=== PATIENT | male | born 1990 | race African-American/Black ===

== ENCOUNTER 2019-06-12 06:32 | Inpatient (IN) ==
[2019-06-12 07:02] LABS: BASO# 0.02 X1000 (0.0-0.2); BASO% 0.1 % (0.0-0.8); EOS# 0.09 X1000 (0.0-0.7); EOS% 0.5 % (0.0-10.0); HEMATOCRIT 43.7 % (42.0-52.0); HEMOGLOBIN 14.2 g/dL (14.0-18.0); IMM GRAN# 0.03 X1000 (0.0-0.04); IMM GRAN% 0.2 % (0.0-0.5); LYMPH# 1.11 X1000 (1.2-3.4); LYMPH% 6.6 % (20.5-51.1); MCH 27.2 PG (27-31); MCHC 32.5 g/dL (33-37); MCV 83.6 FL (81-99); MONO% 7.7 % (1.7-9.3); MPV 9.3 FL (7.4-10.4); NEUT# 14.31 X1000 (1.4-6.5); NEUT% 84.9 % (42.2-75.2); PLT 324 X1000 (130-400); RBC 5.23 XMIL (4.7-6.1); WBC 16.86 X1000 (4.8-10.8)
--- NOTE | 2019-06-12 07:14 | PROVIDER DOCUMENTATION ---
HPI-Abdominal Pain/GI Problem - General Chief Complaint: Abdominal Pain Stated Complaint: ABD PAIN Time Seen by Provider: 06/12/19 06:59 Source: patient Unable to obtain history due to:: urgency Allergies/Adverse Reactions: Patient Allergies Allergy/AdvReac Type Severity Reaction Status Date / Time Penicillins AdvReac Mild VOMITING Verified 06/12/19 06:40 Home Medications: Home Medication List Medication Instructions Recorded Confirmed Last Taken Type NK [No Home Medications] 06/12/19 06/12/19 Unknown History - History of Present Illness-ABD Nature of Presenting Problems: Patient with 2-3 day history increasing LLQ abdominal pain, with decreased bowel movements, no bleeding. Abdominal Pain Onset Location: reports: LLQ Pain Radiation: reports: LLQ Trunk Front/Back: 1 - LLQ pain Quality of Pain: reports: burning, cramping Severity in ED: reports: moderate Onset/Duration: reports: 2 days ago Timing: reports: still present Activities at Onset: reports: none Associated Symptoms: reports: loss of appetite, muscle aches, nausea. denies: dizziness, fever/chills, vomiting Last BM: 2 days ago Dark Stools Present?: reports: none noticed Rectal Bleeding: reports: none Rectal Pain: reports: none Emesis Description: reports: none Bruising or Bleeding Gums?: No Similar Symptoms Previously?: No Recently seen or treated by another doctor?: No Review of Systems - Adult - REVIEW OF SYSTEMS - ADULT Constitutional: reports: no symptoms reported. denies: chills, fever Eyes: reports: no symptoms reported Ears, Nose, Mouth & Throat: reports: no symptoms reported Cardiovascular: reports: no symptoms reported Respiratory: reports: no symptoms reported Gastrointestinal: reports: abdominal pain, constipation, nausea, poor appetite. denies: rectal bleeding, vomiting Genitourinary: reports: urinary retention. denies: flank pain Musculoskeletal: reports: no symptoms reported Integumentary: reports: no symptoms reported Neurological: reports: no symptoms reported Psychiatric: reports: no symptoms reported Endocrine: reports: no symptoms reported Hematologic/Lymphatic: reports: no symptoms reported Allergic/Immunologic: reports: no symptoms reported All Other Systems: Reviewed and Negative Past History - Adult - PAST MEDICAL HISTORY-ADULT Review of Records: reports: Old Records Reviewed, Nursing Assessment Review, Medications Reviewed, Social history reviewed & non-contributory. Major Childhood Illnesses: reports: denies history Cardiovascular: reports: denies history Respiratory: reports: denies history Gastrointestinal: reports: denies history Genitourinary: reports: denies history Musculoskeletal: reports: denies history Neurological: reports: denies history Psychiatric: reports: denies history Endocrine/Immune: reports: denies history Other Conditions: reports: denies history - PRIOR SURGERIES/PROCEDURES Surgical/Procedure History: reports: reviewed, not pertinent, other (abscess to lower back) - PRIOR HOSPITALIZATIONS Prior Hospitalizations: reports: none - IMMUNIZATION STATUS Childhood Immunizations: See Nurse Assessment Flu Vaccine: See Nurse Assessment - FAMILY HISTORY Family History: reviewed, not pertinent - SOCIAL HISTORY Smoking: less than 1 pack/day Substance Use: none/never Alcohol Use Frequency: never Physical Exam-General - PHYSICAL EXAM-ADULT Initial Vital Signs Reviewed: Yes - CONSTITUTIONAL General Appearance: appears well, no apparent distress - EYES Eyes: PERRL/EOMI, pink conjunctivae - HEAD, EARS, NOSE, MOUTH & THROAT HENMT: normocephalic/atraumatic, moist mucous membranes - NECK Neck: non-tender, full range of motion - RESPIRATORY Respiratory: chest non-tender, lungs clear, normal breath sounds - CARDIOVASCULAR Cardiovascular: normal peripheral pulses, regular rate, rhythm, no edema - GASTROINTESTINAL (ABDOMEN) Abdominal Exam: normal bowel sounds, guarding (LLQ), rebound (LLQ), tenderness (LLQ). negative: mass - LYMPHATIC Lymphatic: no adenopathy - MUSCULOSKELETAL Back Exam: normal inspection Extremity: normal range of motion - SKIN Integumentary: normal color - NEUROLOGIC Neurologic: willow analyst II-XII nml as tested, grossly normal - PSYCHIATRIC Psych/Mental Status: normal mood/affect Progress - PLAN OF CARE/RESULTS Progress/Plan/Lab Results: Vital Signs - 8 hr 06/12/19 06:36 Temperature 97 F L Pulse Rate 103 H Respiratory Rate 16 Blood Pressure 138/96 O2 Sat by Pulse Oximetry 97 Laboratory Results - last 24 hr 06/12/19 06:51 WBC 16.86 H RBC 5.23 Hgb 14.2 Hct 43.7 MCV 83.6 MCH 27.2 MCHC 32.5 L RDW Std Deviation 13.0 Plt Count 324 MPV 9.3 Immature Gran % (Auto) 0.2 Neut % (Auto) 84.9 H Lymph % (Auto) 6.6 L [place] % (Auto) 7.7 Eos % (Auto) 0.5 Baso % (Auto) 0.1 Immature Gran # (Auto) 0.03 Neut # (Auto) 14.31 H Lymph # (Auto) 1.11 L [place] # (Auto) 1.30 H Eos # (Auto) 0.09 Baso # (Auto) 0.02 Orders Category Date Time Status NPO Diet 06/12/19 06:[address] ABD/PELVIS W/IV CONT ONLY [CT] Stat Exams 06/12/19 07:03 Ordered CBC WITH DIFF [HEME] Stat Lab 06/12/19 06:51 Completed COMPREHENSIVE METABOLIC PANEL [CHEM] Stat Lab 06/12/19 06:51 Received LIPASE [CHEM] Stat Lab 06/12/19 06:51 Received URINALYSIS [URINALYSIS] Stat Lab 06/12/19 06:40 Uncollected Result Diagrams: 06/12/19 06:51 06/12/19 06:51 - REASSESSMENT Reassessment #1 Status: unchanged (Patient with increasing LLQ abd pain, Spoke to Dr. Aguero [employer] Harrisonnneka hartmann, accepted pt in transfer.) - CT/MRI 1 CT Study: Abdomen Impression: Abnormal (EXAM: CT ABD/PELVIS W/IV CONT ONLY HISTORY: colitis TECHNIQUE: CT abdomen and pelvis with intravenous contrast, but without oral contrast COMPARISON: None. FINDINGS: The gallbladder is partly contracted. No calcified stones or adjacent inflammation. There is mild fatty infiltration of the liver and the liver is mildly prominent. No splenomegaly. No inflammation about the pancreas. Normal adrenal glands and kidneys. No hydronephrosis. Normal aorta. No bowel obstruction. There is free air in the mid pelvis. There is thickening to the wall of the sigmoid colon. Mild thickening to the adjacent small bowel loops. No well-defined abscess. The appendix is mildly distended, but there are no adjacent periappendiceal inflammatory changes. The urinary bladder is only mildly distended. Normal prostate. IMPRESSION: Sigmoid colitis or diverticulitis with focal perforation and adjacent enteritis, but no well-defined abscess. This report was discussed with Dr Garcia in the [place] emergency room on 06/12/2019 at 8:00 AM and was readback. This exam was performed using automated exposure control, adjustment of mA or kV according to patient size, and/or use of iterative reconstruction technique. Electronically signed by Perez Quarles 06/12/2019 8:05 AM 06/12/19 0805 Interpreting Physician: Perez Quarles MD Dictated Date/Time: 06/12/19 0759 cc: Marisel Garcia MD; None,PCP) - CONSULTS/PCP/HOSPITALIST Notification Time Discussed: 08:21 Consult Disposition: Admit [facility], case discussed, accepted patient , transfer to [facility]) Departure - Departure Date of Disposition Decision: 06/12/19 Time of Disposition Decision: 08:19 DIAGNOSIS: Perforation of sigmoid colon due to diverticulitis, Enteritis Abdominal pain Qualifiers: Abdominal location: unspecified location Qualified Code(s): R10.9 - Unspecified abdominal pain Disposition: [facility] 02 Certified Medical Emergency: Emergent Condition: Stable Referrals and Follow-Ups: None,PCP [Primary Care Provider] - - Critical Care Note This patient required my direct & personal management of CC.: No Attestation - Physician/ STEVE Attestation Patient care was provided by Advanced Practice Provider:: No The physician spent face to face time with patient:: Yes Advanced Practice Provider documentation review:: Supervising physician onsite and consulted in the evaluation and care of this patient. The physician did have a face to face encounter with the patient.
[2019-06-12 07:17] LABS: AGAP 14; ALKALINE PHOSPHATASE 86 U/L (32-122); BUN 7 mg/dL (8-22); CALCIUM 9.5 mg/dL (8.8-10.2); CHLORIDE 95 mmol/L (98-107); COSMO 269; CREATININE 0.9 mg/dL (0.7-1.2); ESTIMATED GFR > 60; GLUCOSE 121 mg/dL (70-104); GOT 12 U/L (10-34); GPT 15 U/L (10-44); LIPASE 15 U/L (13-60); POTASSIUM 3.7 mmol/L (3.5-5.1); SODIUM 135 mmol/L (136-145); TCO2 26 mmol/L (25-35); TOTAL PROTEIN 8.2 g/dL (6.3-8.3)
[2019-06-12 07:27] LABS: URINE SOURCE VOIDED
[2019-06-12 07:33] LABS: BILIRUBIN URINE NEGATIVE (NEGATIVE); BLOOD URINE MODERATE (NEGATIVE); COLOR ORANGE; GLUCOSE URINE NEGATIVE (NEGATIVE); KETONE URINE NEGATIVE (NEGATIVE); LEUKOCYTES URINE NEGATIVE (NEGATIVE); NITRITE URINE NEGATIVE (NEGATIVE); PROTEIN URINE 200 mg/dL (NEGATIVE); SP GRAVITY URINE 1.033; TURBIDITY URINE HAZY (CLEAR); UROBILINOGEN URINE 4 mg/dL (NORMAL)
[2019-06-12] MEDS ORDERED: MORPHINE IV ONE (07:34)
[2019-06-12] MEDS ORDERED: NS 1,000 ML IV ONE ×2 (07:34→08:39)
[2019-06-12] MEDS ORDERED: ZOFRAN IV ONE (07:34)
[2019-06-12 07:58] LABS: UR EPITHELIAL CELLS <10 /HPF (<10); URINE BACTERIA 2+ /HPF; URINE RBC <10 /HPF (<10)
[2019-06-12 08:00] LABS: URINE CASTS GRANULAR PRESENT; URINE CRYSTALS NONE SEEN; URINE SMALL ROUND CELLS NONE SEEN; URINE YEAST NONE SEEN
[2019-06-12] MEDS ORDERED: FLAGYL 500 MG/NS 500 MG/100 ML IVPB IV ONE (08:05)
[2019-06-12] MEDS ORDERED: LEVAQUIN 750 MG/D5W 750 MG/150 ML IVPB IV ONE (08:05)
--- NOTE | 2019-06-12 08:07 | Diag Imaging Result Doc PS360 ---
EXAM: CT ABD/PELVIS W/IV CONT ONLY HISTORY: colitis TECHNIQUE: CT abdomen and pelvis with intravenous contrast, but without oral contrast COMPARISON: None. FINDINGS: The gallbladder is partly contracted. No calcified stones or adjacent inflammation. There is mild fatty infiltration of the liver and the liver is mildly prominent. No splenomegaly. No inflammation about the pancreas. Normal adrenal glands and kidneys. No hydronephrosis. Normal aorta. No bowel obstruction. There is free air in the mid pelvis. There is thickening to the wall of the sigmoid colon. Mild thickening to the adjacent small bowel loops. No well-defined abscess. The appendix is mildly distended, but there are no adjacent periappendiceal inflammatory changes. The urinary bladder is only mildly distended. Normal prostate. IMPRESSION: Sigmoid colitis or diverticulitis with focal perforation and adjacent enteritis, but no well-defined abscess. This report was discussed with Dr Garcia in the [place] emergency room on 06/12/2019 at 8:00 AM and was readback. This exam was performed using automated exposure control, adjustment of mA or kV according to patient size, and/or use of iterative reconstruction technique. Electronically signed by Perez Quarles 06/12/2019 8:05 AM
[2019-06-12] MEDS ORDERED: ZOFRAN IV PRN (08:39)
[2019-06-12] MEDS ORDERED: FLU VACCINE IM ONE (09:54)
[2019-06-12] MEDS: LEVAQUIN 750 MG/D5W 750 MG/150 ML IVPB IV SCH (10:20)
[2019-06-12] MEDS: LR 1,000 ML IV SCH ×2 (10:20→21:42)
--- NOTE | 2019-06-12 10:43 | HISTORY AND PHYSICAL ---
ADMITTING DIAGNOSIS: Perforated diverticulitis. HISTORY OF PRESENT ILLNESS: A 29-year-old gentleman presenting with abdominal pain and inability to urinate. He has had abdominal pain for several days and been tender. He was seen in the emergency department, had a CT scan that showed diverticulitis with perforation. He has been transferred over to [facility] for evaluation. He says he is feeling a little bit better now, but is still having some lower quadrant pain. PAST MEDICAL HISTORY: None. PAST SURGICAL HISTORY: Drainage of abscess in the back. SOCIAL HISTORY: Smoker of 1 pack per day with recreational marijuana and cocaine noted. FAMILY HISTORY: Reviewed with patient, noncontributory. ALLERGIES: Penicillin. HOME MEDICATIONS: None. REVIEW OF SYSTEMS: Full 14 systems reviewed and negative, except as otherwise specified in HPI. PHYSICAL EXAMINATION: VITAL SIGNS: Patient is currently afebrile. Pulse 87, blood pressure 147/96, O2 saturation 100% on room air. GENERAL EXAM: No acute distress. Alert, interactive, male, looks stated age. HEENT: Normocephalic, atraumatic. Pupils equal, round, reactive to light. Mucous membranes moist. Oropharynx benign. NECK: Supple. Trachea midline. CARDIOVASCULAR: Regular rate and rhythm. LUNGS: Grossly clear. ABDOMEN: Soft. Some distention, some tenderness and mild guarding noted bilateral lower quadrants, but no peritoneal signs. EXTREMITIES: Moves all extremities. NEUROLOGIC: Grossly intact. SKIN: No signs of jaundice. VASCULAR: All extremities perfused. LABORATORY: White blood cell count 16.8. Remainder of labs reviewed. X-RAYS: CT scan independently reviewed and radiology report reviewed and noted above. ASSESSMENT AND PLAN: A 29-year-old gentleman with perforated diverticulitis. 1. Perforated diverticulitis. At this time we will manage him nonoperatively for right now. We will continue to resuscitate him, monitor him and keep him on antibiotics. We will consider repeat CT scan in 48 to 72 hours to see if there is an abscess formation, but otherwise we will continue to hold the course. cc: Garcia Aguero MD
[2019-06-12] MEDS: FLAGYL 500 MG/NS 500 MG/100 ML IVPB IV SCH ×2 (13:08→21:49)
[2019-06-12] MEDS: MORPHINE IV PRN (21:42)
[2019-06-12] MEDS: ZOFRAN IV PRN (21:42)
[2019-06-13] MEDS: MORPHINE IV PRN ×4 (04:34→23:00)
[2019-06-13] MEDS: FLAGYL 500 MG/NS 500 MG/100 ML IVPB IV SCH ×3 (04:35→20:37)
[2019-06-13] MEDS: LR 1,000 ML IV SCH ×3 (04:38→20:37)
--- NOTE | 2019-06-13 06:57 | GENERAL SURGERY PROGRESS NOTE ---
DATE: 06/13/2019 SUBJECTIVE: The patient seems to be doing okay. He says his pain is better. OBJECTIVE: Vital Signs: The patient is currently afebrile. His vital signs are stable. General: No acute distress. HEENT: Normocephalic, atraumatic. Pupils equal, round, reactive to light. Mucous membranes moist. Oropharynx benign. Neck: Supple. Trachea midline. Cardiovascular: Regular rate and rhythm. Lungs: Grossly clear. Abdomen: Soft. Less tender than he was yesterday. No peritoneal signs. Extremities: Moves all extremities. Neurologic: Grossly intact. Skin: No signs of jaundice. Vascular: All extremities perfused. LABORATORY DATA: None this morning, but will repeat in the morning for tomorrow. ASSESSMENT AND PLAN: A 29-year-old gentleman with perforated diverticulitis. Perforated diverticulitis. At this time, he seems to be making some improvement. Will start him on a clear liquid diet. Will plan on repeating a CBC in the morning, and potential CT scan tomorrow. cc: Garcia Aguero MD
[2019-06-13] MEDS: LEVAQUIN 750 MG/D5W 750 MG/150 ML IVPB IV SCH (09:21)
[2019-06-13] MEDS ORDERED: XANAX PO ONE (13:24)
[2019-06-13] MEDS: ZOFRAN IV PRN (20:37)
[2019-06-14] MEDS: LR 1,000 ML IV SCH (01:00)
[2019-06-14] MEDS: FLAGYL 500 MG/NS 500 MG/100 ML IVPB IV SCH ×3 (04:36→21:05)
--- NOTE | 2019-06-14 06:28 | GENERAL SURGERY PROGRESS NOTE ---
DATE: 06/14/2019 SUBJECTIVE: Patient seems to be doing okay. He is tolerating his diet. He has had a bowel movement. He did not have increased pain with the bowel movement. OBJECTIVE: Vital Signs: Patient is currently afebrile. His vital signs are stable. General: No acute distress. Alert and interactive male looks his stated age. HEENT: Normocephalic and atraumatic. Pupils equal, round, and reactive to light. Mucous membranes moist. Oropharynx benign. Neck: Supple. Trachea midline. Cardiovascular: Regular rate and rhythm. Lungs: Grossly clear. Abdomen: Soft. Less tender. No peritoneal signs. Extremities: Moves all extremities. Neurologic: Grossly intact. Skin: No signs of jaundice. Vascular: All extremities perfused. LABORATORY: Pending for this morning. ASSESSMENT AND PLAN: A 29-year-old gentleman with perforated diverticulitis. Perforated diverticulitis. At this time, he is doing well. We will keep him on his clear liquid diet, and repeat a CT scan today and see if there is any kind of abscess formation. Otherwise, if there is not, we will consider advancing his diet, and hopefully get him out of the hospital here soon. cc: Garcia Aguero MD
--- NOTE | 2019-06-14 08:24 | Diag Imaging Result Doc PS360 ---
EXAM: CT ABD/PELVIS W/PO AND IV CON INDICATION: follow up diverticulitis TECHNIQUE: This exam was performed using automated exposure control, adjustment of mA or kV according to patient size, and/or use of iterative reconstruction technique. COMPARISON: 06/12/2019 FINDINGS: There is layering hyperdense sludge or, more likely, residual vicariously excreted contrast from the previous study in the gallbladder lumen. There is no evidence of pericholecystic inflammatory change. There is likely minimal hepatic steatosis, stable. The liver is unremarkable, otherwise. The spleen, pancreas, adrenal glands, kidneys, and urinary bladder are grossly unremarkable. There is known diverticulitis involving the sigmoid colon that is complicated by perforation. Patchy extraluminal gas and fluid adjacent to the sigmoid colon indicating inflammatory phlegmon is again identified. It appears to be becoming slightly more organized than the previous study with the main fluid collection measuring 2.8 x 2.6 cm axially. However, there is still no mature abscess. There is an abutting loop of small bowel exhibiting prominent wall thickening indicating secondary enteritis similar to the previous study. There is no evidence of bowel obstruction. The appendix is normal. The remainder of the GI tract is unchanged. IMPRESSION: No sigmoid colonic diverticulitis complicated by perforation with an inflammatory phlegmon that is becoming more organized as compared to the previous study. Still, no mature abscess is appreciated. Electronically signed by Kenneth Dillon 06/14/2019 8:21 AM
[2019-06-14 08:25] LABS: BASO# 0.05 X1000 (0.0-0.2); BASO% 0.4 % (0.0-0.8); EOS# 0.18 X1000 (0.0-0.7); EOS% 1.5 % (0.0-10.0); HEMATOCRIT 41.5 % (42.0-52.0); HEMOGLOBIN 13.6 g/dL (14.0-18.0); IMM GRAN# 0.05 X1000 (0.0-0.04); IMM GRAN% 0.4 % (0.0-0.5); LYMPH# 1.37 X1000 (1.2-3.4); LYMPH% 11.7 % (20.5-51.1); MCH 27.5 PG (27-31); MCHC 32.8 g/dL (33-37); MONO# 1.12 X1000 (0.11-0.59); MONO% 9.6 % (1.7-9.3); MPV 9.6 FL (7.4-10.4); NEUT% 76.4 % (42.2-75.2); PLT 338 X1000 (130-400); RBC 4.94 XMIL (4.7-6.1); RDW 12.9 % (11.5-14.5); WBC 11.67 X1000 (4.8-10.8)
[2019-06-14] MEDS: LEVAQUIN 750 MG/D5W 750 MG/150 ML IVPB IV SCH (08:51)
[2019-06-14] MEDS ORDERED: LR 1,000 ML IV SCH (14:45)
[2019-06-14] MEDS: ZOFRAN IV PRN (21:05)
[2019-06-14] MEDS: MORPHINE IV PRN (21:06)
[2019-06-15] MEDS: FLAGYL 500 MG/NS 500 MG/100 ML IVPB IV SCH (05:10)
[2019-06-15] MEDS ORDERED: NORCO-5 PO PRN (05:44)
--- NOTE | 2019-06-15 08:46 | GENERAL SURGERY PROGRESS NOTE ---
DATE: 06/15/2019 SUBJECTIVE: The patient is doing well. He had a CT scan done yesterday which showed no definitive abscess, but still some changes. His white blood cell count yesterday is trending down to normal. It is 11. He says he is feeling better. OBJECTIVE: Vital Signs: Patient is currently afebrile. His vital signs stable. General: No acute distress, up and ambulating without difficulty. HEENT: Normocephalic, atraumatic. Pupils equal, round, reactive to light. Mucous membranes moist. Oropharynx benign. Neck: Supple. Trachea midline. Cardiovascular: Regular rate and rhythm. Lungs: Grossly clear. Abdomen: Soft, minimal discomfort suprapubically. No peritoneal signs. Extremities: Moves all extremities. Neurologic: Grossly intact. Skin: No signs of jaundice. Vascular: All extremities perfused. LABORATORY: As noted from yesterday. CT scan as noted from yesterday. ASSESSMENT AND PLAN: A 29-year-old gentleman with perforated diverticulitis. #1 perforated diverticulitis. At this time we will transition him over to p.o. antibiotics and p.o. pain medicine. We will see how he does. If he is doing okay later this afternoon, may even consider discharge. cc: Garcia Aguero MD
[2019-06-15] MEDS ORDERED: FLAGYL PO SCH (09:00)
[2019-06-15] MEDS ORDERED: LEVAQUIN PO SCH (09:00)
[2019-06-15 11:20] VITALS: BP 138/84
--- NOTE | 2019-06-17 20:43 | DISCHARGE SUMMARY ---
ADMISSION DATE: 06/12/2019 DISCHARGE DATE: 06/15/2019 ADMITTING DIAGNOSIS: Perforated diverticulitis. DISCHARGE DIAGNOSIS: Perforated diverticulitis. PROCEDURES: None. ADMITTING PHYSICIAN: Dr. Garcia Aguero. CONSULTATIONS: None. BRIEF HISTORY: A 29-year-old male who was presented to the emergency department abdominal pain a CT scan showed perforated diverticulitis. His initial evaluation, it was felt that we could manage him nonoperatively. We admitted him, started him on antibiotics, kept him NPO. The patient seemed to progress in the next couple days to where we could start him on a diet and transition to p.o. pain medicine. We got a repeat CT scan that showed improvement with no definitive abscess noted. On 06/15/2019, patient was afebrile. He is up and ambulating, tolerating a regular diet, having regular bowel movements. It was felt that he would be safe to be discharged home. Instructions were given to the patient. DISCHARGE CONDITION: Stable. DISPOSITION: Home. FOLLOW-UP: Patient was given follow up instructions with Dr. Aguero. MEDICATIONS: Patient given Flagyl and Levaquin p.o. cc: Garcia Aguero MD
== END 2019-06-15 12:46 | disposition home or self-care (01) | DRG 392 ==
LOC: P.ED 06:32 → 4N 09:26
PROVIDERS: ADMIT Surgery; ATTEND Surgery